=== PATIENT | male | born 1940 | race Caucasian/White ===

== ENCOUNTER → 2016-09-29 | Outpatient (CLI) | payer OTHER | LOC: BHFA 15:30 | PROVIDERS: ATTEND Internal Medicine Cardiovascular Disease | DX: R60.9 Edema, unspecified (principal); R09.02 Hypoxemia ==

== ENCOUNTER → 2017-06-23 | Outpatient (CLI) | payer OTHER | LOC: CIMAGING 15:06 | PROVIDERS: ATTEND Internal Medicine | DX: J90 Pleural effusion, not elsewhere classified (principal); I70.0 Atherosclerosis of aorta | CPT/HCPCS: 71046-PO ==

== ENCOUNTER → 2017-06-24 | Outpatient (CLI) | payer OTHER | LOC: CIMAGING 15:45 | PROVIDERS: ATTEND Internal Medicine | DX: Z03.89 Encounter for observation for other suspected diseases and conditions ruled out (principal); N43.3 Hydrocele, unspecified | CPT/HCPCS: 76870-PO; 76882-PO ==

== ENCOUNTER → 2017-07-08 | Outpatient (CLI) | payer OTHER | LOC: CIMAGING 16:46 | PROVIDERS: ATTEND Internal Medicine | DX: J90 Pleural effusion, not elsewhere classified (principal); R18.8 Other ascites | CPT/HCPCS: 36415-PO; 71046-PO; 80053-PO; 81256-90; 82103-90; 82104-90; 82172-90; 82390-90; 83010-90; 85610-PO; G0472 ==

== ENCOUNTER → 2017-07-12 | Outpatient (CLI) | payer OTHER | LOC: CIMAGING 08:30 | PROVIDERS: ATTEND Internal Medicine Gastroenterology | DX: R18.8 Other ascites (principal); R16.0 Hepatomegaly, not elsewhere classified; N28.1 Cyst of kidney, acquired; K82.8 Other specified diseases of gallbladder | CPT/HCPCS: 76700-PO ==

== ENCOUNTER → 2017-07-28 | Outpatient (CLI) | payer OTHER | LOC: FIMAGING 15:41 | PROVIDERS: ATTEND Internal Medicine | DX: J94.2 Hemothorax (principal); J90 Pleural effusion, not elsewhere classified ==

== ENCOUNTER 2017-08-03 08:10 | Day surgery (SDC) | payer OTHER ==
[2017-08-03] MEDS ORDERED: LR 1,000 ML IV ONE (09:00)
[2017-08-03] MEDS ORDERED: LIDOCAINE 1% 2 ML INJ ID PRN (09:00)
[2017-08-03 09:04] VITALS: PULSE 93
[2017-08-03] MEDS ORDERED: MIDAZOLAM 2 MG/2 ML VIAL IVP ONE (09:48)
--- NOTE | 2017-08-03 09:51 | PDANEPAE ---
ANE History of Present Illness 76year old male for EGD. History of CAD, Asthma, Sleep Apnea, HTN and possible Varicies. ANE Past Medical History - Cardiovascular History Hx Hypertension: Yes Hx Arrhythmias: Yes Hx Chest Pain: No Hx Coronary Artery / Peripheral Vascular Disease: Yes Hx CHF / Valvular Disease: No Hx Palpitations: No Cardiovascular History Comment: PAROXISMAL ATRIAL FIB - Pulmonary History Hx COPD: No Hx Asthma/Reactive Airway Disease: Yes Hx Recent Upper Respiratory Infection: No Hx Oxygen in Use at Home: No Hx Sleep Apnea: Yes Sleep Apnea Screening Result - Last Documented: Positive Pulmonary History Comment: POS DOMINIC W/CPAP - Neurologic History Hx Cerebrovascular Accident: No Hx Seizures: No Hx Dementia: No - Endocrine History Hx Diabetes: Yes Endocrine History Comment: PREDIABETES - Renal History Hx Renal Disorders: Yes Renal History Comment: CHRONIC KIDNEY DISEASE - Liver History Hx Hepatic Disorders: No - Neurological & Psychiatric Hx Hx Neurological and Psychiatric Disorders: No - Cancer History Hx Cancer: Yes Cancer History Comment: SKIN CA REMOVED - Congenital Disorder History Hx Congenital Disorders: No - GI History Hx Gastrointestinal Disorders: Yes Gastrointestinal History Comment: ACID REFLUX - Other Health History Other Health History: NEG - Chronic Pain History Chronic Pain: No - Surgical History Prior Surgeries: HERNIA. CARDIAC CATH. SHRAPNEL REMOVED BACK & SHOULDER. HELADIO FUNDOPLICATION. L TKA ANE Review of Systems Review of systems is: negative Review of Systems: - Exercise capacity METS (RN): 3 METS ANE Patient History - Allergies Allergies/Adverse Reactions: acetaminophen [From Percocet] Allergy (Severe, Verified 08/05/12 11:56) BLOATING, DIZZY, RASH oxycodone HCl [From Percocet] Allergy (Severe, Verified 08/05/12 11:56) BLOATING, DIZZY, RASH - Home Medications Home Medications: ATORVASTATIN CALCIUM [LIPITOR 40 mg] 40 mg PO DAILY 07/18/09 [Last Taken 06:30] traZODone [traZODONE 50MG (RX)] 100 mg PO HS PRN 01/04/12 [Last Taken 08/02/17 22:00] Albuterol [Proventil Inhaler (RX)] 1 - 2 puffs IH Q4 01/05/12 [Last Taken 06:30] Fluticasone/Salmeter 250/50Mcg [Advair] 1 puffs IH BIDI 06/23/12 [Last Taken 06:30] Valsartan [Diovan] 320 mg PO DAILY 06/23/12 [Last Taken 08/03/17 06:30] Doxazosin Mesylate 07/21/17 [Last Taken 08/02/17 22:00] Lasix 40 MG (*) 07/21/17 [Last Taken 08/03/17 06:30] Metformin HCl 07/21/17 [Last Taken 08/02/17 09:00] Metoprolol Succinate 07/21/17 [Last Taken 08/03/17 06:30] Xarelto 07/21/17 [Last Taken 07/31/17] Advair 500/50 (*) 08/03/17 [Last Taken 08/03/17 06:30] Cardura 08/03/17 [Last Taken 08/02/17 22:00] Esomeprazole Magnesium 40 mg 08/03/17 [Last Taken 08/03/17 06:30] Omeprazole 20 mg 08/03/17 [Last Taken 08/03/17 06:30] - NPO status NPO Since - Liquids (Date): 08/02/17 NPO Since - Liquids (Time): 21:00 NPO Since - Solids (Date): 08/02/17 NPO Since - Solids (Time): 21:00 - Smoking Hx Smoking Status: Former smoker ANE Labs/Vital Signs - Vital Signs Blood Pressure: 133/87 Heart Rate: 93 Respiratory Rate: 20 O2 Sat (%): 93 Height: 182.88 cm Weight: 86.183 kg ANE Physical Exam - Airway Neck exam: FROM Mallampati Score: Class 2 Mouth exam: normal dental/mouth exam - Pulmonary Pulmonary: no respiratory distress - Cardiovascular Cardiovascular: regular rate and rhythym - ASA Status ASA Status: III ANE Anesthesia Plan Anesthesia Plan: MAC
--- NOTE | 2017-08-03 09:52 | PDGENHP ---
History & Physical Chief Complaint: Suspected esophageal varices History of Present Illness: Edema. New onset ascites. Varices seen on recent EGD done to assist passage of trans-esophageal echocardiogram Pertinent Past, Social, Family History: CHF. ASCVD. GERD. Hyperlipidemia. A- fib on xarelto. Remote ETOH abuse history. Ascites. Edema. No FH of cirrhosis Relevant Physical Exam: NAD. No JVD. CTA B/L. IRR. No NANCY. Ascites. Obese. NT/ND. 1+ peripheral edema Cardiorespiratory Assessment: ASA III. EGD with MAC
[2017-08-03] MEDS ORDERED: PROPOFOL 200 MG/20 ML VIAL ONE (09:54)
[2017-08-03] MEDS ORDERED: ACETAMINOPHEN 500 MG TAB PO PRN (10:01)
[2017-08-03] MEDS ORDERED: NALOXONE HCL 0.4 MG/ML INJ IVP PRN (10:01)
[2017-08-03] MEDS ORDERED: ALBUTEROL 3 ML DEYVIAL IH PRN (10:01)
[2017-08-03] MEDS ORDERED: ONDANSETRON 4 MG/2 ML VIAL IVP PRN (10:01)
[2017-08-03] MEDS ORDERED: LABETALOL HCL 5 MG/ML 20 ML MDV IVP PRN (10:01)
--- NOTE | 2017-08-03 10:16 | GIREPORT ---
[facility] Surgical Services - Endoscopy Department Patient Name: Fredy Atkins Procedure Date: 08/03/2017 9:36 AM Patient Type: Outpatient Attending MD/ ER Physician: Roger Qureshi MD Procedure: Upper GI endoscopy Indications: Heartburn, Variceal screening (no known varices or prior bleeding) Providers: Roger Qureshi MD Medicines: Propofol per Anesthesia Complications: No immediate complications. Description of Procedure: After obtaining informed consent, the endoscope was passed under direct vision. Throughout the procedure, the patient's blood pressure, pulse, and oxygen saturations were monitored continuously. The Endoscope was intro duced through the mouth, and advanced to the second part of duodenum. The up er GI endoscopy was accomplished without difficulty. The patient tolerated th e procedure well. Findings: There were esophageal mucosal changes suspicious for short-segment Rodrigez ett's esophagus present in the lower third of the esophagus. The maximum longitudinal extent of these mucosal changes was 2 cm in length. No sampling was performed due to his age, use of xarelto and comorbidit y. No esophageal varices seen. Diffuse moderate inflammation characterized by congestion (edema), eryt zonia and granularity was found in the gastric fundus and in the gastric body . In the fundus were 2 endoclips seen from a prior EGD. No active bleedin g and no underlying lesion that was obvious underneath the clips. No gastric varices seen. The examined duodenum was normal. Estimated Blood Loss: Estimated blood loss: none. Post Op Diagnosis: - Esophageal mucosal changes suspicious for short-segment Kiser's esophagus. No sampling performed. - Chronic gastritis. Predominantly in the fundus and upper gastric body . 2 endoclips from prior intervetion found without underlying lesion or act aleja bleeding. - No obvious esophageal or gastric varices. - No evidence for portal hypertensive gastropathy either. - Normal examined duodenum. - No specimens collected. Recommendation: - Use Nexium (esomeprazole) 40 mg PO daily indefinitely. - Continue present medications. - Resume Xarelto (rivaroxaban) at prior dose today. Refer to referring physician for further adjustment of therapy. - Return to GI office as previously scheduled. - Review his abdomina U/S for liver morphology and evidence of ascites. - I find no supportive evidence for cirrhosis on todays exam and feel h is edema and ascites may be cardiogenic. - Thank you for allowing me to be involved in the care of your patient. Attending Participation: I personally performed the entire procedure without the assistance of a fellow, resident or surg ical switchboard operator assistant. Roger Qureshi MD Roger Qureshi MD 08/03/2017 10:16:16 AM This report has been signed electronicallyDavid MD Titus Number of Addenda: 0 Note Initiated On: 08/03/2017 9:36 AM [email or web address]
--- NOTE | 2017-08-03 10:17 | POSTANESTH ---
Post Anesthetic Evaluation Cardiovascular Status: Normal, Stable Respiratory Status: Similar to Pre-op Cond. Level of Consciousness/Mental Status: Can Participate in Eval, Mildly Sleepy, Arousable Pain Control: Adequate, Prn Tx Ordered Nausea/Vomiting Control: Adequate, Prn Tx Ordered Complications Possibly Related to Anesthesia: None Noted
[2017-08-03] MEDS ORDERED: ALBUTEROL 3 ML DEYVIAL ONE (10:19)
[2017-08-03 11:01] VITALS: TEMP 97.7
[2017-08-03 11:12] VITALS: BP 120/77; RESP 21; O2SAT 92
== END 2017-08-03 11:58 | disposition home or self-care (01) ==
LOC: FSGY 08:10
PROVIDERS: ATTEND Internal Medicine Gastroenterology
PROC: 0DJ08ZZ Inspection of Upper Intestinal Tract, Via Natural or Artificial Opening Endoscopic (ICD-10-PCS; principal; 2017-08-03 09:30)
DX: K29.50 Unspecified chronic gastritis without bleeding (principal); K22.9 Disease of esophagus, unspecified; R60.9 Edema, unspecified; R18.8 Other ascites; R93.3 Abnormal findings on diagnostic imaging of other parts of digestive tract; I48.91 Unspecified atrial fibrillation; I11.0 Hypertensive heart disease with heart failure; I25.10 Atherosclerotic heart disease of native coronary artery without angina pectoris; G47.30 Sleep apnea, unspecified; E66.9 Obesity, unspecified; I50.9 Heart failure, unspecified; K21.9 Gastro-esophageal reflux disease without esophagitis; E78.5 Hyperlipidemia, unspecified; Z79.01 Long term (current) use of anticoagulants
CPT/HCPCS: J2250; J2704; J7613

== ENCOUNTER → 2017-08-05 | Outpatient (CLI) | payer OTHER | LOC: FIMAGING 11:35 | PROVIDERS: ATTEND Internal Medicine Critical Care Medicine | DX: J90 Pleural effusion, not elsewhere classified (principal); J98.11 Atelectasis ==

== ENCOUNTER 2017-08-10 11:57 | Day surgery (SDC) | payer OTHER ==
[2017-08-10] MEDS ORDERED: NS 500 ML IV ONE (12:32)
[2017-08-10] MEDS ORDERED: LIDOCAINE 1% 2 ML INJ ID PRN (12:32)
[2017-08-10] MEDS ORDERED: LIDOCAINE 1% 300 MG/30 ML SDV ONE (13:33)
[2017-08-10] MEDS ORDERED: LIDOCAINE 1% 300 MG/30 ML SDV SC ONE (13:37)
[2017-08-10 14:04] VITALS: RESP 14; O2SAT 94
--- NOTE | 2017-08-10 14:11 | PDHPUP ---
History & Physical Update H&P update statement: This history and physical update is based on an assessment of the patient which was completed after admission or registration (within 24 hours), but prior to the surgery/procedure. H&P update: H&P reviewed & patient examined, no change in patient's condition since H&P completed
[2017-08-10 14:36] VITALS: BP 125/73
== END 2017-08-10 14:45 | disposition home or self-care (01) ==
LOC: FSGY 11:57
PROVIDERS: ATTEND Internal Medicine Critical Care Medicine
PROC: 0W993ZZ Drainage of Right Pleural Cavity, Percutaneous Approach (ICD-10-PCS; principal; 2017-08-10 13:00)
DX: I50.22 Chronic systolic (congestive) heart failure (principal); K74.60 Unspecified cirrhosis of liver; R18.8 Other ascites; N18.3 Chronic kidney disease, stage 3 (moderate); J91.8 Pleural effusion in other conditions classified elsewhere; Z87.891 Personal history of nicotine dependence

== ENCOUNTER → 2017-08-26 | Outpatient (CLI) | payer OTHER | LOC: FIMAGING 18:13 | PROVIDERS: ATTEND Internal Medicine Critical Care Medicine | DX: J90 Pleural effusion, not elsewhere classified (principal); I51.7 Cardiomegaly ==

== ENCOUNTER → 2017-08-27 | Outpatient (CLI) | payer OTHER | LOC: FCPNEURO 21:30 | PROVIDERS: ATTEND Student in an Organized Health Care Education/Training Program | DX: G47.33 Obstructive sleep apnea (adult) (pediatric) (principal) ==

== ENCOUNTER → 2017-10-01 | Outpatient (CLI) | payer OTHER | LOC: FIMAGING 09:47 | PROVIDERS: ATTEND Internal Medicine | DX: R16.2 Hepatomegaly with splenomegaly, not elsewhere classified (principal); R18.8 Other ascites ==

== ENCOUNTER → 2017-10-11 | Outpatient (CLI) | payer OTHER | LOC: FIMAGING 09:45 | PROVIDERS: ATTEND Internal Medicine Gastroenterology | DX: R18.8 Other ascites (principal); J90 Pleural effusion, not elsewhere classified ==

== ENCOUNTER → 2017-10-12 | Outpatient (CLI) | payer OTHER ==
[~2017-10-12] MED LIST: LIDOCAINE 1% 300 MG/30 ML SDV ONE
[2017-10-12 12:36] LABS: INR 1.57 (0.83-1.16); PROTIME(PATIENT) 18.9 SEC (12.0-15.0)
== END ==
LOC: FIMAGING 11:41
PROVIDERS: ATTEND Internal Medicine Critical Care Medicine
PROC: 0W993ZZ Drainage of Right Pleural Cavity, Percutaneous Approach (ICD-10-PCS; principal; 2017-10-12)
DX: J90 Pleural effusion, not elsewhere classified (principal); R06.02 Shortness of breath

== ENCOUNTER → 2017-10-21 | Outpatient (CLI) | payer OTHER | LOC: FIMAGING 10:04 | PROVIDERS: ATTEND Internal Medicine Critical Care Medicine | DX: J45.909 Unspecified asthma, uncomplicated (principal); R05 Cough; J90 Pleural effusion, not elsewhere classified; J98.11 Atelectasis ==

== ENCOUNTER → 2017-11-15 | Outpatient (CLI) | payer OTHER | LOC: FIMAGING 16:47 | PROVIDERS: ATTEND Internal Medicine Gastroenterology | DX: J90 Pleural effusion, not elsewhere classified (principal) ==

== ENCOUNTER 2017-11-19 07:42 | Outpatient (CLI) | payer OTHER ==
[2017-11-19] MEDS ORDERED: LIDOCAINE 1% 300 MG/30 ML SDV ONE (07:55)
[2017-11-19] MEDS ORDERED: ceFAZolin 2 GM/DEXTROSE 100 ML IV ONE (09:32)
[2017-11-19] MEDS ORDERED: HEPARIN 10,000 UNIT/10 ML MDV (1,000 UNIT/ML) IVP PRN (09:32)
[2017-11-19] MEDS ORDERED: fentaNYL 100 MCG/2 ML INJ IVP PRN (09:32)
[2017-11-19] MEDS ORDERED: NALOXONE HCL 0.4 MG/ML INJ IVP PRN (09:32)
[2017-11-19] MEDS ORDERED: MIDAZOLAM 2 MG/2 ML VIAL IVP PRN (09:32)
[2017-11-19] MEDS ORDERED: ALTEPLASE 2 MG VIAL IVP PRN (09:32)
[2017-11-19] MEDS ORDERED: FLUMAZENIL 0.5 MG/5 ML MDV IVP PRN (09:32)
[2017-11-19] MEDS ORDERED: MEPERIDINE 25 MG/ML SYR IVP PRN (09:32)
[2017-11-19] MEDS ORDERED: PROTAMINE SULFATE 50 MG/5 ML VIAL IVP PRN (09:32)
[2017-11-19] MEDS ORDERED: GLUCAGON HCL 1 MG VIAL IVP PRN (09:32)
[2017-11-19] MEDS ORDERED: NS 1,000 ML IV SCH (09:45)
--- NOTE | 2017-11-19 10:07 | PDRADPN ---
Radiology Procedure Note Date of Procedure: 11/19/17 Radiologist: Jas Harrison Anesthesia: Local (Specify) Pre-op Diagnosis: recurrent large right effusion Post-op Diagnosis: same Indication: tx Procedure: US guided thoracentesis Finding(s): 1.5L of reddish pleural fluid evacuated. Minimal residual effusion. Inf/Abcess present in the surg proc area at time of surgery?: No Complications: none
--- NOTE | 2017-11-19 10:19 | PDGENHP ---
History & Physical Chief Complaint: HEPATIC HYDROTHORAX History of Present Illness: SEVERE BILATERAL LE EDEMA, AND SIGNIFICANT SOB THAT' S PROHIBITING PATIENT FROM ANY DEGREE OF ACTIVITY. HE GETS SOB AFTER WALKING 25FT. 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 Pertinent Past, Social, Family History: NON SMOKER. Relevant Physical Exam: MODERATE BILATERAL LE EDEMA. COMPRESSION STOCKINGS ON. Cardiorespiratory Assessment: RRR, CTA
--- NOTE | 2017-11-19 10:25 | PDPROPOC ---
Sedation Plan of Care Sedation Plan of Care: vital signs stable, mental status noted, patient educated of risks, benefits, alternatives, patient can tolerate sedation ASA Classification: ASA 3 Planned drugs: fentanyl, midazolam Mallampati Score: Class 1 Mallampati Reference Image: Patient passed 3-3-2 rule?: Yes
--- NOTE | 2017-11-19 10:39 | CPEKG ---
Heart Rate: 71 RR Interval: 845 P-R Interval: 164 QRSD Interval: 92 QT Interval: 444 QTC Interval: 483 P Nome: 19 QRS Nome: -9 T Wave Nome: -20 EKG Severity - ABNORMAL ECG - EKG Impression: SINUS RHYTHM EKG Impression: ATRIAL PREMATURE COMPLEX EKG Impression: PROBABLE INFERIOR INFARCT, AGE INDETERMINATE EKG Impression: BORDERLINE PROLONGED QT INTERVAL Electronically Signed By: Pippa Dean 20-Nov-2017 10:24:20
[2017-11-19] MEDS ORDERED: IOPAMIDOL (ISOVUE-300) 100 ML BTL ONE (11:40)
[2017-11-19] MEDS ORDERED: ONDANSETRON 4 MG/2 ML VIAL IVP PRN (12:09)
--- NOTE | 2017-11-19 12:15 | PDRADPN ---
Radiology Procedure Note Date of Procedure: 11/19/17 Radiologist: Kelsey Seymour Anesthesia: IV Sedation Pre-op Diagnosis: cirrhosis Post-op Diagnosis: same Indication: pressures. staging of cirrhosis Procedure: TJLBX with pressures Inf/Abcess present in the surg proc area at time of surgery?: No Complications: none immediately
[2017-11-19 13:37] VITALS: BP 106/64
== END 2017-11-19 13:24 | disposition home or self-care (01) ==
LOC: FIMAGING 07:42
PROVIDERS: ATTEND Internal Medicine Gastroenterology
PROC: 0W993ZZ Drainage of Right Pleural Cavity, Percutaneous Approach (ICD-10-PCS; 2017-11-19)
PROC: 0FB03ZX Excision of Liver, Percutaneous Approach, Diagnostic (ICD-10-PCS; principal; 2017-11-19 11:54)
DX: J90 Pleural effusion, not elsewhere classified (principal); K74.69 Other cirrhosis of liver
CPT/HCPCS: 32555; 47000; 71045; 75970; 88307; 88313; 93005; 99152; C1725; C1769; C1892; J1644; J2250; J3010; Q9967; J2310

== ENCOUNTER 2017-12-08 17:30 | Emergency (ER) | payer OTHER ==
--- NOTE | 2017-12-08 18:05 | EDPHY ---
H & P Time Seen by Provider: 12/08/17 17:59 HPI/ROS: CHIEF COMPLAINT: Elevated D-dimer, shortness of breath HISTORY OF PRESENT ILLNESS: Patient is a 76-year-old male with a history of CKD , multiple transudative pleural effusions, ascites, AFIB intermittent exertional dyspnea who presents emergency department with an elevated D-dimer. The patient has been extensively evaluated by physicians in [place] including Dr. Qureshi, Dr. Gamino, cardiology and was ultimately sent to [facility]. Today the patient had his appointment at [facility]. Numerous studies were performed. The patient had a chest x-ray. Patient was discharged home with further follow-up. However, he was called at home and told that his D- dimer was elevated and that he may have a pulmonary embolus. Patient describes intermittent dyspnea. He has no dyspnea at this time. He denies chest pain. He states that his abdominal caliber is remained unchanged. No new leg swelling. No fevers or chills. No cough. REVIEW OF SYSTEMS: My complete review of systems is negative except as mentioned in the HPI. Past Medical/Surgical History: Includes CKD, pleural effusions, ascites, volume overload, atrial fibrillation, obstructive sleep apnea, GERD , CHF, DM2 dyslipidemia Surgical history: Bolus and shrapnel removed from shoulder and back, knee replacement, hernia repair, umbilical hernia repair, Danita fundoplication, tonsillectomy Social history: Patient does not currently smoke. Smoking Status: Former smoker Physical Exam: Vitals noted GENERAL: Well-appearing, in no acute distress, alert. HEENT: Eyes normal to inspection, normal pharynx, no signs of dehydration. NECK: No thyromegaly, no lymphadenopathy, supple. RESPIRATORY: Clear to auscultation bilaterally, no rales, rhonchi or wheezing. CVS: Regular rate and rhythm, no rubs, murmurs, or gallops. ABDOMEN: Soft, nontender, mild abdominal distention, no organomegaly. BACK: Normal to inspection, no CVA tenderness. SKIN: Normal color, no rash, warm, dry. No pallor. EXTREMITIES: No pedal edema, no calf tenderness, no Homans sign or cords, no joint swelling. NEURO/PSYCH: Alert and oriented, normal mood and affect, normal motor sensory exam. Constitutional: Initial Vital Signs Temperature (C) 36.6 C 12/08/17 17:34 Heart Rate 84 12/08/17 17:34 Respiratory Rate 18 12/08/17 17:34 Blood Pressure 141/91 H 12/08/17 17:34 O2 Sat (%) 96 12/08/17 17:34 O2 Delivery Mode Room Air Allergies/Adverse Reactions: acetaminophen [From Percocet] Allergy (Verified 12/08/17 17:32) BLOATING, DIZZY, RASH oxycodone HCl [From Percocet] Allergy (Verified 12/08/17 17:32) BLOATING, DIZZY, RASH Home Medications: Medication Instructions Recorded traZODone [traZODONE 50MG (RX)] 100 mg PO HS 01/04/12 Albuterol [Proventil Inhaler (RX)] 2 puffs IH PRN PRN 01/05/12 Valsartan [Diovan] 160 mg PO DAILY 06/23/12 Lasix 40 MG (*) 60 mg PO DAILY AT 8PM 07/21/17 Metformin HCl 500 mg PO DAILY 07/21/17 Metoprolol Succinate 50 mg PO DAILY 07/21/17 Xarelto 15 mg PO HS 07/21/17 Advair 500/50 (*) 1 puffs IH BID 08/03/17 Esomeprazole Magnesium 40 mg PO DAILY 08/09/17 Spironolactone 50 mg PO MWF 08/09/17 Lasix 40 MG (*) 40 mg PO DAILY AT 2PM 11/18/17 Lipitor 40 mg PO DAILY 11/18/17 Medical Decision Making - Diagnostics Imaging Results: Imaging Impressions Chest/Thorax CTA 12/08/17 18:19 Impression: 1. Negative CT examination of the chest for acute pulmonary thromboembolic disease. 2. Moderate right pleural effusion with right lower lobe atelectasis. Results called to Dr. Maylin Amanda at 7:25 PM at the time of the interpretation. ED Course/Re-evaluation: In the emergency department I discussed possible etiologies with the patient. Answered all his questions. I reviewed the patient's medical record from [facility]. Patient is INR was 1.51. BNP was 380 chemistry panel was notable for creatinine 1.5. C-reactive protein was 0.49. CK was 38 TSH was 0.44. CBC showed a normal white count of 9. Hematocrit was 43. Platelets were 195. Patient had elevated D-dimer of 12 50. (Normal ranges 0-599) EKG shows normal sinus rhythm, normal rate, normal axis, normal intervals. There are no ST or T-wave abnormalities. EKG is normal as interpreted by me. Patient troponin was negative. Patient CBC was unremarkable. The patient's chemistry panel is notable for an elevated potassium of 5.4. CT angio of the chest: Please refer the dictated report by Dr. Galeas. No pulmonary embolus. Patient does have a right pulmonary effusion with right lower lobe atelectasis. I discussed the results with the patient. He has recurrent pulmonary effusions. He is aware he needs close follow-up with Dr. Osborne. He will call his office tomorrow. He is given warnings prior to leaving. He was given the copy of his report. A time discharge patient was doing well. He will continue with the plan from [facility]. Differential Diagnosis: My differential includes but is not limited to pulmonary embolus, ACS, acute OR , CHF, pneumonia, bronchitis - Data Points Laboratory Results: Laboratory Results 12/08/17 18:11 12/08/17 18:11 12/08/17 12/08/17 12/08/17 18:56 18:11 18:11 WBC 9.35 10^3/uL 10^3/uL (3.80-9.50) RBC 4.55 10^6/uL 10^6/uL (4.40-6.38) Hgb 13.4 g/dL L g/dL (13.7-17.5) Hct 41.4 % % (40.0-51.0) MCV 91.0 fL fL (81.5-99.8) MCH 29.5 pg pg (27.9-34.1) MCHC 32.4 g/dL g/dL (32.4-36.7) RDW 18.7 % H % (11.5-15.2) Plt Count 182 10^3/uL 10^3/uL (150-400) MPV 11.6 fL fL (8.7-11.7) Neut % (Auto) 78.0 % H % (39.3-74.2) Lymph % (Auto) 8.1 % L % (15.0-45.0) Ripley % (Auto) 11.7 % % (4.5-13.0) Eos % (Auto) 1.4 % % (0.6-7.6) Baso % (Auto) 0.2 % L % (0.3-1.7) Nucleat RBC Rel Count 0.0 % % (0.0-0.2) Absolute Neuts (auto) 7.29 10^3/uL H 10^3/uL (1.70-6.50) Absolute Lymphs (auto) 0.76 10^3/uL L 10^3/uL (1.00-3.00) Absolute Monos (auto) 1.09 10^3/uL H 10^3/uL (0.30-0.80) Absolute Eos (auto) 0.13 10^3/uL 10^3/uL (0.03-0.40) Absolute Basos (auto) 0.02 10^3/uL 10^3/uL (0.02-0.10) Absolute Nucleated RBC 0.00 10^3/uL 10^3/uL (0-0.01) Immature Gran % 0.6 % % (0.0-1.1) Immature Gran # 0.06 10^3/uL 10^3/uL (0.00-0.10) Sodium 137 mEq/L mEq/L (135-145) Potassium 5.4 mEq/L H mEq/L (3.3-5.0) Chloride 101 mEq/L mEq/L (97-110) Carbon Dioxide 24 mEq/l mEq/l (22-31) Anion Gap 12 mEq/L mEq/L (8-16) BUN 34 mg/dL H mg/dL (7-23) Creatinine 1.3 mg/dL mg/dL (0.7-1.3) Estimated GFR 53 Glucose 109 mg/dL H mg/dL (70-100) Calcium 10.1 mg/dL mg/dL (8.5-10.4) POC Troponin I 0.01 ng/mL ng/mL (0.00-0.08) Point of Care Test Results: Chemistry 12/08/17 18:56 POC Troponin I 0.01 ng/mL ng/mL (0.00-0.08) Departure - Departure Disposition: Home, Routine, Self-Care Clinical Impression: Elevated d-dimer Dyspnea Qualifiers: Dyspnea type: unspecified Qualified Code(s): R06.00 - Dyspnea, unspecified Condition: Good Instructions: Dyspnea (ED) Additional Instructions: You are found to have an elevated D-dimer test from [facility]. This prompted them to send you to the emergency department. At [facility] you had a CT angiogram of your chest which did not show any pulmonary embolus. You were noted to have a pulmonary effusion. You need close follow-up with Dr. Osborne. Referrals: Zoya Osborne MD [Primary Care Provider] - 1-2 days without fail
[2017-12-08 18:32] LABS: PLATELET COUNT 182 10^3/uL (150-400)
--- NOTE | 2017-12-08 18:38 | CPEKG ---
Heart Rate: 77 RR Interval: 779 P-R Interval: 164 QRSD Interval: 90 QT Interval: 412 QTC Interval: 467 P Vivian: 13 QRS Vivian: -21 T Wave Vivian: 3 EKG Severity - ABNORMAL ECG - EKG Impression: SINUS RHYTHM EKG Impression: MULTIPLE ATRIAL PREMATURE COMPLEXES EKG Impression: BORDERLINE LEFT AXIS DEVIATION Electronically Signed By: Maylin Amanda 08-Dec-2017 20:48:41
[2017-12-08] MEDS ORDERED: IOPAMIDOL (ISOVUE 370) 100 ML BTL IV ONE (18:43)
[2017-12-08 19:44] VITALS: BP 123/73
== END 2017-12-08 19:44 | disposition home or self-care (01) ==
DX: R06.00 Dyspnea, unspecified (principal); R79.1 Abnormal coagulation profile; I50.9 Heart failure, unspecified; N18.9 Chronic kidney disease, unspecified; E11.9 Type 2 diabetes mellitus without complications; Z87.891 Personal history of nicotine dependence
CPT/HCPCS: 71275; 93005; 99285; Q9967; 84484-PO

== ENCOUNTER 2018-01-30 | Emergency (ER) | payer OTHER | END 2018-01-30 22:27 | disposition home or self-care (01) | PROC: 095KXZZ Destruction of Nasal Mucosa and Soft Tissue, External Approach (ICD-10-PCS; principal; 2018-01-30) ==